=== PATIENT | female | born 1950 | race Caucasian/White ===

== ENCOUNTER 2023-09-18 12:47 | Emergency (ER) | payer MEDICARE, SELFPAY ==
[2023-09-18 12:48] VITALS: BP 123/63; PULSE 75; RESP 15; TEMP 36.1; O2SAT 98; BMI 31.1
--- NOTE | 2023-09-18 12:57 | DI.RAD.S_ITS ---
PROCEDURE: XR ANKLE RT MIN 3V INDICATIONS: ankle injury TECHNIQUE: 3 views of the ankle were acquired. COMPARISON: None. FINDINGS: Bones: Oblique mildly displaced distal fibular fracture likely with involvement of the syndesmosis. Question posterior malleolar fracture. Horizontal minimally displaced medial malleolar fracture. Minimal widening of the medial ankle mortise. Ankle mortise is normally aligned. No suspicious bony lesions. Soft tissues: No tibiotalar joint effusion. Achilles tendon appears normal. IMPRESSION: There are either bimalleolar or trimalleolar fractures. There is likely involvement of the syndesmosis. There is mild disruption of the ankle mortise. Dictated by: Lars Bassett M.D. on 09/18/2023 at 13:51 Approved by: Lars Bassett M.D. on 09/18/2023 at 13:54
--- NOTE | 2023-09-18 13:05 | ED.LOWEXIN ---
HPI - Extremity Injury (Lower) <Jossue Jordan PA-C - Last Filed: 09/18/23 15:14> General Chief Complaint: Extremity Injury, Lower Stated Complaint: possible broken right ankle non weight bearing Time Seen by Provider: 09/18/23 13:00 Source: patient Mode of arrival: Wheelchair History of Present Illness HPI Narrative: This is a 73-year-old female presents to emergency department due to right ankle pain. She states that she was walking through the mud and tripped over her right ankle. She did not injure her knee, hip, hit her head, or lose conscious. She was not report any numbness in her foot or ankle. She was not on blood thinners and has no past medical history. Related Data Previous Rx's Medication Instructions Recorded ondansetron 4 mg disintegrating 4 mg PO Q8H PRN nausea and 09/19/23 tablet vomiting #5 tabs oxycodone 5 mg tablet 5 mg PO Q4H PRN pain #40 tabs 09/19/23 Allergies Allergy/AdvReac Type Severity Reaction Status Date / Time No Known Drug Allergies Allergy Verified 09/19/23 09:08 Review of Systems <Jossue Jordan PA-C - Last Filed: 09/18/23 15:14> Review of Systems Narrative: GENERAL: Denies chills, fatigue, malaise, fever, sweats. HEENT: Denies sinus pain, ear pain, sore throat, difficulty swallowing, dizziness. RESPIRATORY: Denies dyspnea, cough, wheezing, hemoptysis, sputum. CARDIOVASCULAR: Denies chest pain, palpitations, orthopnea, edema, GASTROINTESTINAL: Denies nausea, vomiting, abdominal pain, diarrhea, constipation, melena. : Denies dysuria, frequency, incontinence, hematuria, urinary retention. MUSCULOSKELETAL: Reports right ankle pain SKIN: Denies rash, skin lesions, or other NEUROLOGIC: Denies weakness, headache, numbness, change in speech, confusion, seizures, incoordination. PSYCHIATRIC: No concerning psychosocial issues. 12 point review of systems is negative except for those stated above Patient History <Jossue Jordan PA-C - Last Filed: 09/18/23 15:14> Social History household members: spouse Smoking Status: Unknown if ever smoked Smoking Status: Unknown if ever smoked alcohol intake frequency: holidays/special occasions only Substance Use Type: does not use Exam <ROSELYN Felix Last Filed: 09/18/23 15:14> Narrative Exam Narrative: GENERAL: Well-developed patient, in mild distress. HEAD: Atraumatic. Normocephalic. EYES: Pupils equal round and reactive. Extraocular motions intact. No scleral icterus. No injection or drainage. ENT: Nose without bleeding, purulent drainage. Throat without erythema, tonsillar hypertrophy or exudate. Airway patent. NECK: Trachea midline. Non tender GASTROINTESTINAL: Abdomen soft, non-tender, nondistended. EXTREMITIES: Tenderness to palpation to the lateral aspect of the right ankle, moderate edema. 2+ posterior tibialis and dorsalis pedis pulses. No numbness. Full range of motion of the toes. BACK: Nontender without deformity or crepitance. No flank tenderness. NEURO: AOx3. SKIN: No rash or erythema of visible areas Initial Vital Signs Initial Vital Signs: Vital Signs Temperature 96.9 F L 09/18/23 12:48 Pulse Rate 75 09/18/23 12:48 Respiratory Rate 15 09/18/23 12:48 Blood Pressure 123/63 09/18/23 12:48 Pulse Oximetry 98 09/18/23 12:48 Oxygen Delivery Method Room Air 09/18/23 12:48 <Bobbi Burger DO - Last Filed: 09/21/23 07:37> Initial Vital Signs Initial Vital Signs: Vital Signs Temperature 96.9 F L 09/18/23 12:48 Pulse Rate 75 09/18/23 12:48 Respiratory Rate 15 09/18/23 12:48 Blood Pressure 123/63 09/18/23 12:48 Pulse Oximetry 98 09/18/23 12:48 Oxygen Delivery Method Room Air 09/18/23 12:48 Procedures <ROSELYN Felix Last Filed: 09/18/23 15:14> Orthopedic Splinting/Casting Injury #1: Time of procedure: 15:06 Side: right Lower Extremity Immobilizer: posterior splint Other Orthopedic Equipment: crutches Post splinting neuro exam: intact Post splinting vascular exam: intact Placed by: Nursing Course <ROSELYN Felix Last Filed: 09/18/23 15:14> Orders Ordered: Discontinued Medications Hydrocodone Bitart/Acetaminophen (Hydrocodone/Acet 5/325 Tablet) 1 tab PO NOW ONE Stop: 09/18/23 14:45 Last Admin: 09/18/23 14:50 Dose: 1 tab Documented By: ADAN Consultations Consultation #1: [id number]: Discussed patient with Dr. Antunez, orthopedist, who recommended a posterior short-leg splint, elevation, and to follow up in her clinic for probable surgery.. Vital Signs Vital signs: Vital Signs - 8 hr 09/18/23 12:48 09/18/23 14:45 Temperature 96.9 F L Pulse Rate 75 63 Respiratory Rate 15 18 Blood Pressure 123/63 121/64 Pulse Oximetry 98 97 Oxygen Delivery Method Room Air Room Air <Bobbi Burger DO - Last Filed: 09/21/23 07:37> Orders Ordered: Discontinued Medications Hydrocodone Bitart/Acetaminophen (Hydrocodone/Acet 5/325 Tablet) 1 tab PO NOW ONE Stop: 09/18/23 14:45 Last Admin: 09/18/23 14:50 Dose: 1 tab Documented By: ADAN Vital Signs Vital signs: Vital Signs - 8 hr 09/18/23 12:48 09/18/23 14:45 Temperature 96.9 F L Pulse Rate 75 63 Respiratory Rate 15 18 Blood Pressure 123/63 121/64 Pulse Oximetry 98 97 Oxygen Delivery Method Room Air Room Air MDM - Extremity Injury (Lower) <Jossue Jordan PA-C - Last Filed: 09/18/23 15:14> Imaging Data Extremity x-ray #1: Radiologist's Impression: [address] [address] XRay Report Signed Patient: Belle Olivier MR#: [id number] : 1950 Acct:[id number] Age/Sex: 73 / F Date of Service: 09/18/23 Loc: ED Accession Number: [id number] Procedure: XR ankle RT min 3V Ordering Provider: Bobbi Burger D.O. PROCEDURE: XR ANKLE RT MIN 3V INDICATIONS: ankle injury TECHNIQUE: 3 views of the ankle were acquired. COMPARISON: None. FINDINGS: Bones: Oblique mildly displaced distal fibular fracture likely with involvement of the syndesmosis. Question posterior malleolar fracture. Horizontal minimally displaced medial malleolar fracture. Minimal widening of the medial ankle mortise. Ankle mortise is normally aligned. No suspicious bony lesions. Soft tissues: No tibiotalar joint effusion. Achilles tendon appears normal. IMPRESSION: There are either bimalleolar or trimalleolar fractures. There is likely involvement of the syndesmosis. There is mild disruption of the ankle mortise. Dictated by: Lars Bassett M.D. on 09/18/2023 at 13:51 Approved by: Lars Bassett M.D. on 09/18/2023 at 13:54 MDM Narrative Medical decision making narrative: MDM * differential diagnosis includes but not limited to fracture, neurovascular injury, sprain * Prior records reviewed: Patient has not been to the emergency department the past * My lab interpretation: None obtained * My imgaing interpretation: X-ray showed bimalleolar or possible trimalleolar fracture with involvement of the syndesmosis. * Clinical Decision Rules/Scores evaluated: None * Independent discussions with: None ED Course: This is a 73-year-old female presents emergency department due to a mechanical ground level fall. Patient injured right ankle, x-ray shows bimalleolar or possible trimalleolar fracture. This was discussed with on-call orthopedist, Dr. Antunez, who recommended a posterior short-leg splint, elevation, and outpatient follow up in her clinic. Patient is not on blood thinners and has no past medical history. Patient will be prescribed oxycodone for pain control. She was neurovascularly intact throughout the course of the counter. Posterior short-leg splint with stirrups applied without complications. Patient was instructed to be nonweightbearing with crutches in the follow up with the office. Shared Decision Making: Discussed plan with the patient who is comfortable with the plan. Social Considerations: None Disposition: Discharged to home Discharge Plan Departure Patient Disposition: Home Clinical Impression: Ankle fracture Instructions: DI for Fracture Activity Restrictions/Additional Instructions: Thank you for coming to the [facility] Emergency Department today. As we discussed you have a right ankle fracture. Please call Dr. Antunez's office tomorrow to arrange for an appointment. I recommend ibuprofen Tylenol as needed for pain control but you may use the prescribed oxycodone for breakthrough pain. Please keep the leg elevated and do not place any weight on it. I hope you feel better soon. Please follow up with your primary care provider within a week if your symptoms continue. If you do not have a primary care provider please contact the [facility] Resource line at [phone]. They will ask some questions about your medical history and help you get set up with a provider in the community. Prescriptions: No Action oxycodone 5 mg tablet 5 mg PO Q4H PRN (Reason: pain) Qty: 40 0RF Rx Instructions: Postop exempt ondansetron 4 mg tablet,disintegrating 4 mg PO Q8H PRN (Reason: nausea and vomiting) Qty: 5 1RF Referrals: Shahnaz Antunez MD [Physician] - (f/u R ankle fracture, thank you! ) Stand Alone Forms: Patient Portal/API ED Sign-out <Bobbi Burger DO - Last Filed: 09/21/23 07:37> Cosign ED Attending Millie Attestation: I was immediately available in the department for consultation.
[2023-09-18 14:45] VITALS: BP 121/64; PULSE 63; RESP 18; O2SAT 97
[2023-09-18] MEDS: HYDROCODONE/ACET 5/325 TABLET 1 TAB PO (14:50)
== END 2023-09-18 15:35 | disposition home or self-care (01) ==
PROVIDERS: Emergency Provider Physician Assistant Medical
DX: S82.891A Other fracture of right lower leg, initial encounter for closed fracture (principal); W01.0XXA Fall on same level from slipping, tripping and stumbling without subsequent striking against object, initial encounter; Y93.89 Activity, other specified
CPT/HCPCS: 29515; 73610; 99283

== ENCOUNTER 2023-09-19 08:33 | Day surgery (SDC) | payer MEDICARE, SELFPAY ==
[2023-09-19] VITALS (10 sets, daily range): BP systolic 105–133; BP diastolic 58–75; PULSE 62–82; RESP 13–24; TEMP 36.2–36.3; O2SAT 96–99; BMI 31.1
--- NOTE | 2023-09-19 | DI.RAD.S_ITS ---
PROCEDURE: XR ANKLE RT 2V INDICATIONS: RT ANKLE ORIF TECHNIQUE: 3 views of the ankle were acquired. COMPARISON: [facility], , XR ANKLE RT MIN 3V, 09/18/2023, 13:01. FINDINGS: Intraoperative images demonstrate lateral and medial malleolar fixation. There is good anatomic alignment. IMPRESSION: Intraoperative fixation. Dictated by: Joselin Heredia M.D. on 09/19/2023 at 17:12 Approved by: Joselin Heredia M.D. on 09/19/2023 at 17:12
--- NOTE | 2023-09-19 07:54 | PM.HP.1 ---
History of Present Illness History of Present Illness Date Patient Seen: 09/19/23 Time Patient Seen: 09:00 Date of Onset of Symptoms: 09/18/23 Chief complaint: ORIF Ankle Fracture Narrative: This is a 73-year-old female that tripped in the mud and fell injuring ankle. She was unable to weightbear. She was brought to [facility] where an x-ray was taken that demonstrated an ankle fracture. She has no other significant medical problems does not take any anticoagulants. Denies any other body part injuries. She was found to have a fibula fracture at the level of the syndesmosis and medial malleolus fracture. Also has irregularity of the posterior malleolus concerning for trimalleolar fracture and syndesmotic injury. She was placed into a splint and given crutches and recommended for Orthopedic follow up. [facility] Social History household members: spouse Smoking Status: Unknown if ever smoked Meds Home Medications and Allergies Home Medications Medication Instructions Recorded Confirmed Type oxycodone 5 mg capsule 5 mg PO Q8H PRN pain #20 caps 09/18/23 09/19/23 Rx Allergies Allergy/AdvReac Type Severity Reaction Status Date / Time No Known Drug Allergies Allergy Verified 09/19/23 09:08 Review of Systems Review of Systems ROS: Yes All systems reviewed with the patient and are negative except as otherwise documented Exam Narrative Exam Narrative: Alert and oriented female in no acute distress HEENT exam normocephalic atraumatic Heart regular rate and rhythm Lungs clear to auscultation bilaterally Right ankle and splint. Tenderness around the medial and lateral malleoli. No knee tenderness. Wiggles toes. Toes warm and well perfused. Sensation grossly intact. Compartments soft. Palpable dorsalis pedis pulse. Swelling and ecchymosis consistent with known fracture. Wiggles toes. Rest of motor exam deferred due to known fracture. 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 Lateral shift of the talus possible syndesmotic injury fracture pattern. Radiologist's impression: IMPRESSION:?? There?are?either?bimalleolar?or?trimalleolar?fractures.??There?is?likely?involvement?of?the?syndesmosis.??There?is?mild?disruption?of?the?ankle?mortise. Assessment & Plan Assessment and plan (1) Trimalleolar fracture of ankle, closed: Qualifiers: Encounter type: initial encounter Laterality: right Qualified Code(s): S82.851A - Displaced trimalleolar fracture of right lower leg, initial encounter for closed fracture Status: Acute Plan Patient is a 73-year-old female with a unstable ankle fracture trimalleolar. She is indicated for operative fixation of her unstable ankle fracture to restore alignment and reduce the risk of posttraumatic arthritis and progressive dysfunction. Postoperatively the patient will be nonweightbearing for 6 weeks. She will be immobilized in a splint for 2 weeks and will start early range of motion after an office visit. Postoperative DVT prophylaxis will be aspirin 325 mg daily for 6 weeks. Alternatively she can take for 81 mg baby aspirin. May use enteric-coated aspirin. If there is gastric irritation recommend using a proton pump inhibitor. The risks and benefits of the procedure have been discussed with the patient and given the opportunity to ask questions. The risks of surgery include but are not limited to infection, malunion, nonunion, persistence of pain, damage to nerves and blood vessels, posttraumatic arthritis, DVT, PE, coardiopulmonary complications and . The patient expressed a thorough understanding of the risks and benefits of surgery and has elected to proceed. Consent was signed. Time Spent With Patient Time with patient: 30 to 49 minutes with 50% spent counseling/coordinating care Quality VTE Deep Vein Thrombosis/Pulmonary Embolism Present on Admission: No
[2023-09-19] MEDS: LACTATED RINGERS 1,000 ML 42 ML IV (09:02)
[2023-09-19] MEDS: ACETAMINOPHEN 325 MG TABLET 975 MG PO (09:08)
--- NOTE | 2023-09-19 11:03 | P.OP_ITS ---
Operative Date/Time/Diagnoses Date of procedure: 09/19/23 Time of procedure: 11:20 Pre-op diagnosis: Right ankle trimalleolar fracture Right ankle syndesmosis injury Post-op diagnosis: same Procedure & Clinicians Procedure: Open reduction internal fixation trimalleolar ankle fracture without fixation posterior lip CPT code 85981 Open reduction internal fixation syndesmosis CPT code 41211 Same procedure as scheduled: Yes Indications: Patient is a 73-year-old female that slipped in the mud and sustained a right ankle fracture. This was a trimalleolar ankle fracture at the level of the syndesmosis. And represents an unstable ankle fracture. She has no other significant medical problems. She was indicated for operative fixation to r estore alignment and reduce the risk of posttraumatic arthritis and progressive dysfunction. The risks and benefits of the procedure have been discussed with the patient and given the opportunity to ask questions. The risks of surgery include but are not limited to infection, malunion, nonunion, persistence of pain, damage to nerves and blood vessels, posttraumatic arthritis, DVT, PE, coardiopulmonary complications and . The patient expressed a thorough understanding of the risks and benefits of surgery and has elected to proceed. Consent was signed. Surgeon: Kaylee Hoyos Click Yes if Unassisted: Yes Anesthesia Type: General and Peripheral nerve block Operative Notes Findings: Trimalleolar ankle fracture small posterior malleolus fracture did not require separate fixation. There was a syndesmotic disruption. Fibula fracture at the level of the syndesmosis was fixed with a 3.0 cancellous screw as a lag screw and a 7 hole 1/3 tubular Arthrex plate with 3.5 cortical screws proximally and 3.5 locking screws distally. The medial malleolus with a small displaced fragment felt to be too small for 2 screws and was fixed with a cerclage wire construct using 2x 062 K-wires and an 18 gauge wire in a cerclage fashion. 3.5 cancellous screw was used as the post proximally. Syndesmosis was unstable and was secured with a Arthrex tightrope Xp. This was placed in a more posterior trajectory to avoid the [place] construct anteriorly. Closure Type: primary Specimen(s): none sent Prosthetic devices, grafts, tissues, transplants, or devices: Arthrex 1/3 tubular locking capable plate 7 hole--for fibular fixation with 3.5 nonlocking and locking screws. Tight rope Xp for syndesmotic fixation 062 K-wires and 18 gauge cerclage wire for medial malleolus fixation. Estimated Blood Loss (mL): 20 Blood products transfused: none Tourniquet time (min): 59 Procedure in detail: Procedure in detail: In the preoperative holding area, the appropriate limb and sites were marked, consent was again reviewed with the patient and all questions answered. Regional block was placed by the anesthesia team for postoperative pain control. The patient was brought to the operating room, placed on the operating table and given anesthetic. Following successful levels of anesthesia, the patient was appropriately padded, position secured to the table. An SCD was placed on the contralateral leg. All bony prominences were well padded. A well- padded thigh tourniquet was placed. The surgical leg was then prepped and draped in the usual sterile fashion. A formal time-out procedure was completed confirming the patient, site and side of surgery and administration of appropriate preoperative antibiotics. All were in agreement. An Esmarch bandage was utilized to exsanguinate the right limb and the tourniquet was raised on the thigh to 250 mmHg. Lateral incision was made over the fibula. Dissection was carried through the skin and subcutaneous tissue to the level of the fibula. The fracture was exposed and cleaned of debris. Fracture was reduced, restoring length rotation and anatomic alignment. This was stabilized with 3-0 cancellous screw as a inter frag lag screw. Next a 1/3 tubular locking 7 hole Arthrex neutralization plate was placed and secured in standard fashion. Appropriate implant positioning was confirmed on intraoperative fluoro. Ankle was stressed under fluoroscopic imaging an external rotation and fibular manipulation using the bone clamp/hook. The syndesmosis was felt to be unstable Medial malleolus fixation: Attention was then turned to the medial side of the joint. A standard medial approach to the medial malleolus was taken. The periosteum was reflected at the fracture site and this was cleaned and reduced with a pointed reduction clamp. This was a very small fracture felt to be too small to obtain fixation with 2 screws therefore, Two parallel K-wires were then placed and alignment checked on x-ray to confirm adequate position. An 18 gauge cerclage wire was used for cerclage fixation and a 3. Five cancellous screw was used as a post. The 18 gauge wire was wrapped around the K-wires and post in cerclage fashion and tightened. The K-wires were then bent and cut and tamped into the bone securing the fixation and the post screw was tightened down. Care was taken to bend the wires to reduce prominence. Care was also taken to observe and protect the posterior tibialis tendon. Reduction was directly visualized at the medial tibiotalar joint was anatomic. Syndesmosis stabilization: Attention was then turned to the syndesmosis. The syndesmosis was stressed under fluoroscopy with external rotation and fibular manipulation using the bone hook. It was felt the syndesmosis opened. Therefore the syndesmosis was formally opened and reduced and then stabilized with a tightrope Xp suture button device from the Arthrex system this was drilled tetra cortically but was directed more posterior than usual to avoid the anterior hardware. The posterior malleolus fracture was small and was treated non operatively. Stability was confirmed under fluoro. The wounds were irrigated. We were quite satisfied with result clinically and radiographically. The tourniquet was released, and hemostasis achieved. The deep tissue was closed with 2 O Vicryl. Subcutaneous tissue was closed with 4 0 Monocryl in the skin with 3 O nylon. A sterile bulky dressing and U splint were applied. All counts were correct. The patient was then awoken and transported to recovery room in good condition. There no known immediate complications from this procedure. Complications: none Post-operative Condition: stable Disposition: PACU Plan for aftercare: Nonweightbearing were flat foot down for balance only in the right lower extremity x6 weeks. Follow up in clinic in 2 weeks for incision check. Aspirin 325 mg daily for 6 weeks for DVT prophylaxis.
--- NOTE | 2023-09-19 11:41 | SUR.PREOP ---
Block start time [1115] . Monitoring initiated and maintained throughout procedure. Oxygen and medications given per anesthesiologist instructions. Patient remained stable throughout procedure, no adverse reactions noted. Block end time [1131].
[2023-09-19] MEDS: CEFAZOLIN 2 GM/100 ML PREMIX 100 ML IV (11:48)
--- NOTE | 2023-09-19 12:08 | SUR.OPER ---
Supine on padded OR bed, head on pillow, arms secured on padded arm boards at <90 degrees abduction, legs uncrossed, right leg in control of surgeon. Bump placed under patient's right hip and right leg. Left leg covered with blanket and taped down. Safety belt at thigh.
[2023-09-19] MEDS: ONDANSETRON 4 MG/2 ML INJ IV (14:09)
[2023-09-19] MEDS: KETOROLAC 30 MG/ML VIAL IV (14:20)
[2023-09-19] MEDS: OXYCODONE IR 5 MG TABLET PO (14:26)
== END 2023-09-19 15:22 | disposition home or self-care (01) ==
PROVIDERS: Referring Provider Orthopaedic Surgery Foot and Ankle Surgery; Visit Provider Orthopaedic Surgery Foot and Ankle Surgery
PROC: 0SSF04Z Reposition Right Ankle Joint with Internal Fixation Device, Open Approach (ICD-10-PCS; CPT 27822; principal; 2023-09-19 10:30)
DX: S82.851A Displaced trimalleolar fracture of right lower leg, initial encounter for closed fracture (principal); S93.431A Sprain of tibiofibular ligament of right ankle, initial encounter; G89.18 Other acute postprocedural pain; W18.39XA Other fall on same level, initial encounter
CPT/HCPCS: 27822; 27829; 64450; 73600; 76000; C1713; J0690; J1100; J1885; J2405; J2704; J3010

== ENCOUNTER → 2023-12-01 15:11 | Outpatient (CLI) | payer OTHER, SELFPAY ==
--- NOTE | 2023-12-01 15:12 | DI.MG.S_ITS ---
BILATERAL DIGITAL SCREENING MAMMOGRAM 3D/2D WITH CAD: 12/01/2023 CLINICAL: Routine screening. Baseline exam. No prior exams were available for comparison. There are scattered areas of fibroglandular density in both breasts (category b / 25%-50% glandular tissue). Current study was also evaluated with a Computer Aided Detection (CAD) system. No significant masses, calcifications, or other findings are seen in either breast. IMPRESSION: NEGATIVE There is no mammographic evidence of malignancy. A 1 year screening mammogram is recommended. Based on the Tyrer Cuzick model (a risk assessment model) the patient's lifetime risk is 2.8% and her 10 year risk is 2.1%. According to the ACR, ACS, and NCCN guidelines, an annual breast MRI exam along with mammogram is recommended if the patient's lifetime risk is 20% or greater. This exam was interpreted at Station ID: [id number]. NOTE: For mammograms, a report in lay terms will be sent to the patient. Approximately 15% of breast malignancies will not be visualized mammographically. In the management of a palpable breast mass, a negative mammogram must not discourage biopsy of a clinically suspicious lesion. Electronically Signed By: Becka Mendez M.D., PH.D randy/penjan:12/02/2023 17:28:16 letter sent: Normal Exam ACR BI-RADS Category 1: Negative [id number]
--- NOTE | 2023-12-01 15:12 | DI.RAD.S_ITS ---
Bone Density Report Name: NINOSKA IZAGUIRRE Age: 73 Sex: Female Ethnicity: White Date of : 1950 Indication: postmenopausal; screening for osteoporosis; Referring Provider: ELAINE DONAHUE Study: Bone densitometry was performed. Exam Date: December 01, 2023 Accession number: [id number] Bone Density: Region BMD T-score Z-score Classification AP Spine(L1-L4) 0.843 -1.9 0.4 Osteopenia Femoral Neck (Left) 0.632 -2.0 0.0 Osteopenia Total Hip (Left) 0.737 -1.7 -0.1 Osteopenia Femoral Neck (Right) 0.632 -2.0 0.0 Osteopenia Total Hip (Right) 0.665 -2.3 -0.6 Osteopenia Total Hip Mean 0.701 -2.0 -0.4 Osteopenia World Health Organization criteria for BMD impression classify patients as: Normal (T-score at or above -1.0), Osteopenia (T-score between -1.0 and -2.5), or Osteoporosis (T-score at or below -2.5). Impression: The patient has low bone mass, based on the Right Total Hip T-score. Discussion: BONE DENSITY IS LOW AT ONE OR MORE SKELETAL SITES. This patient's lowest T-score is low at one or more skeletal sites. It meets the World Health Organization's (WHO) criteria for low bone mass (T-score between -1.0 and -2.5). The patient's 10-year risk of fracture as calculated by FRAX is less than the threshold where pharmacological therapy is recommended by the National Osteoporosis Foundation (NOF). However, all treatment decisions require clinical judgment and consideration of individual patient factors, including patient preferences, comorbidities, previous drug use, risk factors not captured in the FRAX model (e.g., frailty, falls, vitamin D deficiency, increased bone turnover, interval significant decline in bone density) and possible under or overestimation of fracture risk by FRAX. The patient should follow a healthful lifestyle (good nutrition with adequate calcium and vitamin D, and appropriate weight-bearing exercise). Follow-Up: Consider repeating this study in 2 to 3 years to reassess this patient's status, or sooner if there is some new clinical indication. Reported by: JE JOSE MD on 12/01/2023 3:45:00 PM.
== END ==
PROVIDERS: Referring Provider Family Medicine; Visit Provider Family Medicine
DX: Z12.31 Encounter for screening mammogram for malignant neoplasm of breast (principal); M85.88 Other specified disorders of bone density and structure, other site; R92.323 Mammographic fibroglandular density, bilateral breasts; Z78.0 Asymptomatic menopausal state
CPT/HCPCS: 77063; 77067; 77080

== ENCOUNTER → 2024-08-06 07:57 | Outpatient (CLI) | payer OTHER, SELFPAY ==
[2024-08-06 08:24] LABS: Add Manual Diff / Slide Review NO; Basophils Absolute Auto 0 /uL (0-100); Basophils Percent Auto 0.5 % (0-2); Eosinophils Absolute Auto 200 /uL (0-450); Eosinophils Percent Auto 2.9 % (2-4); Hematocrit 43.5 % (36-46); Hemoglobin 14.5 g/dL (12.0-16.0); Lymphocytes Absolute Auto 2500 /uL (1100-4500); Lymphocytes Percent Auto 33.2 % (25-40); Mean Corpuscular HGB Conc 33.4 % (30-36); Mean Corpuscular Hemoglobin 31.1 PG (26-34); Mean Corpuscular Volume 93.1 fL (80-100); Monocytes Absolute Auto 600 /uL (0-900); Monocytes Percent Auto 8.3 % (3-14); Neutrophils Absolute Auto 4100 /uL (1500-7000); Neutrophils Percent Auto 55.1 % (50-75); Platelet Count 209 X10^3/uL (150-400); Red Blood Cell Count 4.67 X10^6/uL (4.0-5.2); Red Cell Distribution Width 13.8 % (11.6-14.8); White Blood Cell Count 7.4 X10^3/uL (4.5-11.0)
[2024-08-06 08:50] LABS: Alanine Aminotransferase 15 IU/L (<35); Albumin 3.9 g/dL (3.5-5.0); Albumin Globulin Ratio 1.4 (1.0-2.8); Alkaline Phosphatase 47 U/L (38-126); Aspartate Aminotransferase 21 IU/L (14-36); BUN Creatinine Ratio 26.7 (6-22); Bilirubin Total 0.5 mg/dL (0.2-1.3); Blood Urea Nitrogen 27 mg/dL (7-17); Calcium 9.7 mg/dL (8.4-10.2); Carbon Dioxide 27 mmol/L (22-32); Chloride 106 mmol/L (98-107); Cholesterol 301 mg/dL (140-199); Estimated Glomerular Filt Rate 59 mL/min (>60); Globulin 2.8 g/dL (1.7-4.1); Glucose 95 mg/dL (80-110); HDL Cholesterol 71 mg/dL (40-60); HEMOLYSIS < 15 (0-50); LDL Cholesterol Calculated 198 mg/dL (<100); Potassium 4.3 mmol/L (3.4-5.1); Sodium 138 mmol/L (137-145); Total Protein 6.7 g/dL (6.3-8.2); Triglycerides 161 mg/dL (35-150)
== END ==
PROVIDERS: PCP Family Medicine; Referring Provider Family Medicine; Visit Provider Family Medicine
DX: Z00.00 Encounter for general adult medical examination without abnormal findings (principal); M85.80 Other specified disorders of bone density and structure, unspecified site; R35.0 Frequency of micturition
CPT/HCPCS: 36415; 80053; 80061; 85025

== ENCOUNTER 2024-11-18 11:44 | Day surgery (SDC) | payer MEDICARE, SELFPAY ==
[2024-11-18] MEDS: LACTATED RINGERS 1,000 ML 42 ML IV (11:59)
[2024-11-18 12:04] VITALS: BP 140/83; PULSE 71; RESP 16; TEMP 36.8; O2SAT 98
--- NOTE | 2024-11-18 12:28 | PM.HP.IH.1 ---
History of Present Illness History of Present Illness Date Patient Seen: 11/18/24 Time Patient Seen: 12:28 Chief complaint: SD Narrative: Belle is a 74-year-old woman here for colonoscopy. Her last colonoscopy was approximately 7 years ago and she did have polyps removed. No family history of colon cancer. [facility] Medical History (Updated 11/18/24 @ 12:32 by Ashu Johnson MD) Measles (~1950) Vertigo Colon polyps (~2017) Osteopenia (~2019) Trimalleolar fracture of ankle, closed (~2022) Surgical History (Updated 12/08/23 @ 20:02 by Katherine Hidalgo) Anesthesia History of surgery on lower extremity (~2022) History of partial hysterectomy (~1992) Family History (Updated 12/08/23 @ 20:03 by Katherine Hidalgo) Mother Hypertension Mental health problem Social History household members: spouse Smoking Status: Never smoker alcohol intake: never Meds Home Medications and Allergies Home Medications Medication Instructions Recorded Confirmed Type aspirin 81 mg tablet,delayed 81 mg PO DAILY 08/02/24 11/18/24 History release (Adult Low Dose Aspirin) Allergies Allergy/AdvReac Type Severity Reaction Status Date / Time meperidine [From Demerol] AdvReac Intermediate Hypotension Verified 11/18/24 11:58 Exam Vital Signs (past 8 hours): - 11/18/24 12:04 Temperature 98.2 F Pulse Rate 71 Respiratory Rate 16 Blood Pressure 140/83 Pulse Oximetry 98 Oxygen Delivery Method Room Air Oxygen Delivery Method Room Air Const General: healthy appearing Resp Effort & Inspection: normal respiratory effort Assessment & Plan Assessment and plan (1) Personal history of colonic polyps: Status: Acute Plan Colonoscopy Time-Based Coding :: [TOTAL MINUTES] spent with patient and on the chart (including review of chart, obtaining history, exam, reviewing outside data, placing orders, documenting exam and treatment plan, and counseling patient) on [DATE]. [employer] Architecture Analyst Document charge(s): No
[2024-11-18 12:54] VITALS: BP 110/59; PULSE 78; RESP 14; TEMP 36.6; O2SAT 96
--- NOTE | 2024-11-18 12:56 | PM.OP.COLON ---
Operative Date/Time/Diagnoses Date of procedure: 11/18/24 Time of procedure: 12:57 Pre-op diagnosis: History of polyps Post-op diagnosis: same Procedure & Clinicians Study performed: Colonoscopy Same procedure as scheduled: Yes Surgeon: Ashu Johnson Procedure Notes Procedure in detail: Surgeon: Ashu Johnson MD Anesthesia: Joan Hurley CRNA Procedure: The patient was brought to the endoscopy suite, placed in left lateral decubitus position. The patient was connected to monitoring devices. A time-out was performed. Sedation was administered. Once the patient was adequately sedated, a digital rectal exam was performed and was normal. The scope was then inserted and advanced to the cecum where the appendiceal orifice was identified and photographed. The scope was then slowly withdrawn over greater than 6 minutes. The mucosa was thoroughly inspected. No abnormalities were identified. The scope was retroflexed in the rectum. The scope was straightened and removed. The patient was awakened and brought to recovery. Scope withdrawal time: 7 minutes Sedation time: 12 minutes EBL: 0 Findings: Normal colon Post-procedure Disposition: PACU
[2024-11-18 12:59] VITALS: BP 98/62; PULSE 76; RESP 16; O2SAT 99
[2024-11-18 13:05] VITALS: BP 110/60; PULSE 62; RESP 16; O2SAT 99
== END 2024-11-18 13:15 | disposition home or self-care (01) ==
PROVIDERS: PCP Family Medicine; Referring Provider Surgery; Visit Provider Surgery
PROC: 0DJD8ZZ Inspection of Lower Intestinal Tract, Via Natural or Artificial Opening Endoscopic (ICD-10-PCS; CPT 45378; principal; 2024-11-18 13:00)
DX: Z12.11 Encounter for screening for malignant neoplasm of colon (principal); Z86.0100 Personal history of colon polyps, unspecified
CPT/HCPCS: G0105; J2704

== ENCOUNTER → 2024-11-24 09:30 | Outpatient (CLI) | payer MEDICARE, SELFPAY | PROVIDERS: PCP Family Medicine; Visit Provider Registered Nurse | DX: J02.9 Acute pharyngitis, unspecified (principal) | CPT/HCPCS: 87070 ==

== ENCOUNTER → 2025-02-21 07:08 | Outpatient (CLI) | payer MEDICARE, SELFPAY ==
[2025-02-21 08:15] LABS: Cholesterol 239 mg/dL (140-199); HDL Cholesterol 67 mg/dL (40-60); LDL Cholesterol Calculated 145 mg/dL (<100); Triglycerides 133 mg/dL (35-150)
== END ==
PROVIDERS: PCP Family Medicine; Referring Provider Family Medicine; Visit Provider Family Medicine
DX: E78.00 Pure hypercholesterolemia, unspecified (principal)
CPT/HCPCS: 36415; 80061

== ENCOUNTER → 2025-08-30 11:29 | Outpatient (CLI) | payer MEDICARE, SELFPAY ==
--- NOTE | 2025-08-30 11:44 | DI.MG.S_ITS ---
MM screening mammo BI: 08/30/2025. BI-RADS: 1 CLINICAL: 75-year old female for bilateral screening mammogram. Tyrer-Cuzick lifetime risk of 2.0%. No personal or first-degree family history of breast cancer. The patient had a prior right breast biopsy. PRIOR EXAMS 12/01/2023. MAMMOGRAPHY TECHNIQUE: 2D and 3D (tomosynthesis) digital mammographic views obtained, with additional images as needed for full coverage. Current study was also evaluated with a Computer Aided Detection (CAD) system. DENSITY B. There are scattered areas of fibroglandular density. MAMMOGRAPHY FINDINGS Bilateral: No suspicious mass, asymmetry, microcalcification, or other abnormality seen. IMPRESSION: * No evidence of malignancy. RECOMMENDATIONS Bilateral * Annual screening mammography. OVERALL ASSESSMENT CATEGORY BI-RADS-1: Negative. The [employer] recommends annual screening mammography beginning at age 40 for women with average risk of breast cancer. ELECTRONICALLY SIGNED: Liam Ibarra M.D. on 08/31/2025 at 08:20:48 AM PT Interpreting Station ID: [id number]
== END ==
LOC: MAMMO 11:29
PROVIDERS: PCP Family Medicine; Referring Provider Family Medicine; Visit Provider Family Medicine
DX: Z12.31 Encounter for screening mammogram for malignant neoplasm of breast (principal)
CPT/HCPCS: 77063; 77067